=== PATIENT | male | born 1965 | race Caucasian/White ===

== ENCOUNTER 2020-01-19 07:00 | Day surgery (SDC) | payer OTHER, SELFPAY ==
[2020-01-15 10:55] VITALS: BMI 26.4
--- NOTE | 2020-01-17 15:03 | HO.ANESPROP2 ---
Documented by User: Rosy Lala 01/17/20 15:04 HPI - Anesthesia Eval Consult details Narrative: 54yo M for Colonoscopy PMFSH Past Medical History Medical History Hypertension Skin cancer Surgical History Surgical History Hx of cholecystectomy Hx of colonoscopy Social History Social History Smoking Status: Never smoker Advance Directives: Yes Advance Directives Information Provided: Yes Advance Directives on File: No Advance Directives Date on File: 01/19/20 Meds Allergies Allergy/AdvReac Type Severity Reaction Status Date / Time No Known Allergies Allergy Verified 01/15/20 10:52 Home Medications Medication Instructions Recorded Confirmed Type lisinopril 1 tab PO DAILY 01/15/20 01/19/20 History multivitamin 1 cap PO DAILY 01/15/20 01/15/20 History Exam Exam Date and Time: January 17, 2020 1503 Height,Weight and Vital Signs: Height 5 ft 8.5 in Weight 79.832 kg Assessment and Plan Assessment Anesthesia Assessment: Chart Reviewed Documented by User: Greta Bowen 01/19/20 07:56 PMFSH Past Medical History Medical History Hypertension Skin cancer Surgical History Surgical History Hx of cholecystectomy Hx of colonoscopy Social History Social History Smoking Status: Never smoker Advance Directives: Yes Advance Directives Information Provided: Yes Advance Directives on File: No Advance Directives Date on File: 01/19/20 Meds Allergies Allergy/AdvReac Type Severity Reaction Status Date / Time No Known Allergies Allergy Verified 01/15/20 10:52 Home Medications Medication Instructions Recorded Confirmed Type lisinopril 1 tab PO DAILY 11/09/20 11/13/20 History multivitamin 1 cap PO DAILY 01/15/20 01/15/20 History Exam Airway Mallampati Class: I TM Dist: >3cm Neck ROM: Full Loose/Missing/Broken Teeth: No Heart: RRR Lungs: CTA Assessment and Plan Assessment Anesthesia Assessment: Anesthesia Plan Discussed and Chart Reviewed Final Anesthetic Review NPO: Yes ASA Class: II Final Preanesthetic Review: Meds/Allgs Chart Reviewed, Consent Obtained/Reviewed and Anes Risks/Benef Reviewed Patient Risk: Low Procedure Risk: Low Anesthetic Plan Anesthetic Plan: MAC: Disposition: Standard PACU
[2020-01-19 07:10] VITALS: BP 151/80; PULSE 65; RESP 18; TEMP 35.6; O2SAT 100
[2020-01-19] MEDS: Lactated Ringers 1,000 ML 100 ML IVCONT (07:25)
--- NOTE | 2020-01-19 07:58 | MHC.SHP ---
Pre-Procedural Eval Section B Chief Complaint: screening Details of Present Illness: screening Relevant Family History (Specify if Yes): No Relevant Social History: None Present Medications: see Short Stay Collaborative assessment Medical History: No relevant PMH History of Previous Operations: No relevant previous surgery Allergies: Allergies Allergy/AdvReac Type Severity Reaction Status Date / Time No Known Allergies Allergy Verified 01/15/20 10:52 Review of Systems Sugical H&P ROS: Negative: Constitution, Cardiovascular, Respiratory, Neurological, Psychiatric, Hem-Onc, Allergic/Immunologic, Gastrointestinal, Genitourinary, Musculoskeletal, Integumentary, Endocrine and Eyes/Ears/Nose/Throat Exam Surgical H&P Exam: Normal: HEENT, Normal: Heart, Normal: Lungs, Normal: Extremities, Normal: Abdomen, Normal: Skin and Normal: Neurological Plan Diagnosis/Plan: Unchanged Patient has been examined and remains a candidate for the planned procedure
[2020-01-19 08:31] VITALS: BP 115/57; PULSE 69; RESP 16; TEMP 36.6; O2SAT 99
--- NOTE | 2020-01-19 08:32 | PM.OP ---
Brief Operative Note Date of Service: 01/19/20 Pre-op diagnosis: screening Post-op diagnosis: same (colon polyps) Procedure: colonoscopy Surgeon: Stuart Borrero Anesthesia: MAC Estimated blood loss (mL): 5 Pathology: other (polyps 70, 15 cm) Condition: stable Disposition: PACU
[2020-01-19 08:46] VITALS: BP 131/82; PULSE 61; RESP 16; TEMP 36.6; O2SAT 99
--- NOTE | 2020-01-19 09:10 | OP_ITS ---
SURGEON: Stuart Borrero MD INDICATIONS: Colon cancer screening and prior history of adenomatous colon polyps. PREOPERATIVE DIAGNOSIS: POSTOPERATIVE DIAGNOSIS: PROCEDURE PERFORMED: Colonoscopy to the terminal ileum with biopsy. ESTIMATED BLOOD LOSS: COMPLICATIONS: ANESTHESIA: ASSISTANTS: SPECIMENS: MEDICATIONS: Monitored anesthesia care. DESCRIPTION OF PROCEDURE: History and physical performed. The risks and benefits of the procedure were explained to the patient. Informed consent was obtained. The patient was placed in the left lateral decubitus position. A digital rectal exam was performed and was found to be normal. The Olympus pediatric video colonoscope was introduced into the rectum and advanced to the cecum without difficulty. The cecum was identified by transillumination, palpation, and identification of ileocecal valve. Examination was performed. The scope was removed. He tolerated the procedure well and was returned to recovery area in stable condition. FINDINGS: The terminal ileum was normal. The visualized colonic mucosa was normal. There was some stool coating mucosa in the right colon and proximal transverse colon limiting examination for detection of small polyps. This was washed and suctioned as best possible. Two polyps were identified, removed with biopsy forceps. Both measured less than 5 mm, one was located at 70 cm, one was located at 15 cm. No other polyps were identified. Retroflexed examination showed small internal hemorrhoids. IMPRESSION: Colon polyps. RECOMMENDATION: Follow up biopsy results. MD RIKA Jay/ABHIJITL / [id number]
== END 2020-01-19 09:15 | disposition home or self-care (01) ==
PROVIDERS: PCP Internal Medicine; Visit Provider Internal Medicine Gastroenterology
PROC: 0DJD8ZZ Inspection of Lower Intestinal Tract, Via Natural or Artificial Opening Endoscopic (ICD-10-PCS; CPT 45378; principal; 2020-01-19 08:10)
DX: Z12.11 Encounter for screening for malignant neoplasm of colon (principal); Z86.010 Personal history of colon polyps; D12.4 Benign neoplasm of descending colon; D12.7 Benign neoplasm of rectosigmoid junction; K64.8 Other hemorrhoids; I10 Essential (primary) hypertension; Z79.899 Other long term (current) drug therapy; Z85.828 Personal history of other malignant neoplasm of skin
CPT/HCPCS: 45380; 88305

== ENCOUNTER 2020-02-08 07:09 | Outpatient (REF) | payer OTHER, SELFPAY ==
[2020-02-08 11:18] LABS: MANUAL DIFF FLAG NO
[2020-02-08 11:26] LABS: Basophils Absolute Auto 0.1 X10*3/uL (0.0-0.2); Basophils Percent Auto 1.1 % (0-2); Eosinophils Absolute Auto 0.2 X10*3/uL (0.0-0.4); Eosinophils Percent Auto 3.2 % (0-4); Hematocrit 46.6 % (42-52); Hemoglobin 15.7 g/dl (14.0-18.0); Imm Gran Abs Auto 0.04 X10*3/uL (0.00-0.03); Imm Gran Pct Auto 0.7 % (0.0-0.4); Lymphocytes Absolute Auto 1.4 X10*3/uL (1.2-4.9); Lymphocytes Percent Auto 26.5 % (20-40); Mean Corpuscular HGB Conc 33.7 g/dl (31.0-36.0); Mean Corpuscular Volume 94.9 fL (80-98); Mean Platelet Volume 9.6 fL (9.4-12.4); Monocytes Absolute Auto 0.5 X10*3/uL (0.1-1.2); Monocytes Percent Auto 8.4 % (2-11); Neutrophils Absolute Auto 3.2 X10*3/uL (2.0-8.3); Neutrophils Percent Auto 60.1 % (45-73); Platelet Count 245 X10*3/uL (160-400); Red Blood Count 4.91 X10*6/uL (4.60-5.80); Red Cell Distribution Width 11.7 % (11.0-16.0); White Blood Count 5.4 X10*3/uL (4.8-10.8)
[2020-02-08 12:11] LABS: C Reactive Protein 0.09 mg/dL (< or = 0.50)
[2020-02-08 12:22] LABS: Erythrocyte Sedimentation Rate 2 MM/HR (0-15)
[2020-02-10 06:47] LABS: Lyme Abs Screen <0.90 index
== END 2020-02-08 07:10 | disposition home or self-care (01) ==
LOC: HO.HMGCLDS 07:09
PROVIDERS: PCP Internal Medicine; Visit Provider Internal Medicine
DX: T14.8XXA Other injury of unspecified body region, initial encounter (principal)
CPT/HCPCS: 36415; 85025; 85652; 86140; 86618

== ENCOUNTER 2020-06-21 06:07 | Outpatient (REF) | payer OTHER, SELFPAY ==
[2020-06-21 11:18] LABS: MANUAL DIFF FLAG NO
[2020-06-21 11:27] LABS: Basophils Absolute Auto 0.1 X10*3/uL (0.0-0.2); Basophils Percent Auto 1.6 % (0-2); Eosinophils Absolute Auto 0.2 X10*3/uL (0.0-0.4); Eosinophils Percent Auto 3.2 % (0-4); Hematocrit 45.2 % (42-52); Hemoglobin 15.4 g/dl (14.0-18.0); Imm Gran Abs Auto 0.03 X10*3/uL (0.00-0.03); Imm Gran Pct Auto 0.5 % (0.0-0.4); Lymphocytes Absolute Auto 1.7 X10*3/uL (1.2-4.9); Lymphocytes Percent Auto 30.1 % (20-40); Mean Corpuscular HGB Conc 34.1 g/dl (31.0-36.0); Mean Corpuscular Hemoglobin 32.1 pg (27.0-33.0); Mean Corpuscular Volume 94.2 fL (80-98); Mean Platelet Volume 9.8 fL (9.4-12.4); Monocytes Absolute Auto 0.6 X10*3/uL (0.1-1.2); Neutrophils Percent Auto 53.6 % (45-73); Platelet Count 250 X10*3/uL (160-400); Red Cell Distribution Width 11.7 % (11.0-16.0); White Blood Count 5.7 X10*3/uL (4.8-10.8)
[2020-06-21 11:52] LABS: Alanine Aminotransferase 20 U/L (0-40); Albumin Level 4.4 g/dL (3.5-5.0); Alkaline Phosphatase 62 U/L (39-117); Anion Gap 12 (12-20); Aspartate Amino Transferase 22 U/L (5-37); Bilirubin Total 0.4 mg/dL (0.0-1.0); Blood Urea Nitrogen 17 mg/dL (9-16); Calcium 9.4 mg/dL (8.4-10.2); Carbon Dioxide 30 mmol/L (22-29); Chloride 102 mmol/L (96-108); Cholesterol 224 mg/dL; Estimated Glomerular Filt Rate > 60; Glucose Fasting 88 mg/dL (60-99); HDL Cholesterol 74 mg/dL; LDL Cholesterol Calculated 128 mg/dl; Potassium 4.7 mmol/L (3.3-5.1); Sodium 139 mmol/L (135-145); Total Protein 7.1 g/dL (6.5-8.0); Triglycerides 114 mg/dL
[2020-06-21 12:01] LABS: Prostate Specific Antigen 0.43 ng/mL (<0.05-4.0)
== END 2020-06-21 06:08 | disposition home or self-care (01) ==
LOC: HO.HMGCLDS 06:07
PROVIDERS: Visit Provider Internal Medicine
DX: Z00.00 Encounter for general adult medical examination without abnormal findings (principal); I10 Essential (primary) hypertension; E78.00 Pure hypercholesterolemia, unspecified
CPT/HCPCS: 36415; 80053; 80061; 84153; 85025

== ENCOUNTER 2021-08-07 06:04 | Outpatient (REF) | payer OTHER, SELFPAY ==
[2021-08-07 11:19] LABS: MANUAL DIFF FLAG NO
[2021-08-07 11:25] LABS: Basophils Absolute Auto 0.1 X10*3/uL (0.0-0.2); Basophils Percent Auto 1.6 % (0-2); Eosinophils Absolute Auto 0.1 X10*3/uL (0.0-0.4); Eosinophils Percent Auto 2.2 % (0-4); Hematocrit 42.9 % (42.0-52.0); Hemoglobin 14.4 g/dl (14.0-18.0); Imm Gran Abs Auto 0.03 X10*3/uL (0.00-0.03); Imm Gran Pct Auto 0.6 % (0.0-0.4); Lymphocytes Absolute Auto 1.3 X10*3/uL (1.2-4.9); Lymphocytes Percent Auto 25.4 % (20-40); Mean Corpuscular HGB Conc 33.6 g/dl (31.0-36.0); Mean Corpuscular Hemoglobin 31.3 pg (27.0-33.0); Mean Corpuscular Volume 93.3 fL (80.0-98.0); Mean Platelet Volume 10.1 fL (9.4-12.4); Monocytes Absolute Auto 0.6 X10*3/uL (0.1-1.2); Monocytes Percent Auto 11.4 % (2-11); Neutrophils Percent Auto 58.8 % (45-73); Platelet Count 276 X10*3/uL (160-400); Red Cell Distribution Width 11.8 % (11.0-16.0); White Blood Count 5.1 X10*3/uL (4.8-10.8)
[2021-08-07 11:44] LABS: Alanine Aminotransferase 23 U/L (0-40); Albumin Level 4.1 g/dL (3.5-5.0); Alkaline Phosphatase 66 U/L (39-117); Anion Gap 11 (12-20); Aspartate Amino Transferase 24 U/L (5-37); Bilirubin Total 0.4 mg/dL (0.0-1.0); Blood Urea Nitrogen 17 mg/dL (9-16); Calcium 9.4 mg/dL (8.4-10.2); Carbon Dioxide 26 mmol/L (22-29); Chloride 103 mmol/L (96-108); Cholesterol 217 mg/dL; Estimated Glomerular Filt Rate > 60; Glucose Fasting 100 mg/dL (60-99); HDL Cholesterol 54 mg/dL; LDL Cholesterol Calculated 117 mg/dl; Potassium 4.6 mmol/L (3.3-5.1); Sodium 135 mmol/L (135-145); Total Protein 6.9 g/dL (6.5-8.0); Triglycerides 234 mg/dL
[2021-08-07 12:09] LABS: PSA,Total (Free>4and<10) 0.52 ng/mL (0.00-4.00); Thyroid Stimulating Hormone 1.31 uIU/mL (0.32-4.0)
== END 2021-08-07 06:05 | disposition home or self-care (01) ==
LOC: HO.HMGCLDS 06:04
PROVIDERS: PCP Internal Medicine; Visit Provider Internal Medicine
DX: Z00.00 Encounter for general adult medical examination without abnormal findings (principal); Z12.5 Encounter for screening for malignant neoplasm of prostate; E78.00 Pure hypercholesterolemia, unspecified; I10 Essential (primary) hypertension
CPT/HCPCS: 36415; 80053; 80061; 82306; 84153; 84443; 85025

== ENCOUNTER 2022-06-05 06:18 | Outpatient (REF) | payer OTHER, SELFPAY ==
[2022-06-05 11:40] LABS: MANUAL DIFF FLAG NO
[2022-06-05 11:55] LABS: Basophils Absolute Auto 0.1 X10*3/uL (0.0-0.2); Basophils Percent Auto 1.5 % (0-2); Eosinophils Absolute Auto 0.2 X10*3/uL (0.0-0.4); Eosinophils Percent Auto 3.1 % (0-4); Hemoglobin 15.5 g/dl (14.0-18.0); Imm Gran Abs Auto 0.03 X10*3/uL (0.00-0.03); Imm Gran Pct Auto 0.5 % (0.0-0.4); Lymphocytes Absolute Auto 1.3 X10*3/uL (1.2-4.9); Lymphocytes Percent Auto 20.4 % (20-40); Mean Corpuscular HGB Conc 34.4 g/dl (31.0-36.0); Mean Corpuscular Hemoglobin 32.2 pg (27.0-33.0); Mean Corpuscular Volume 93.6 fL (80.0-98.0); Mean Platelet Volume 10.1 fL (9.4-12.4); Monocytes Absolute Auto 0.7 X10*3/uL (0.1-1.2); Monocytes Percent Auto 10.9 % (2-11); Neutrophils Absolute Auto 3.9 x10*3/uL (2.0-8.3); Neutrophils Percent Auto 63.6 % (45-73); Platelet Count 248 X10*3/uL (160-400); Red Blood Count 4.81 X10*6/uL (4.60-5.80); Red Cell Distribution Width 11.6 % (11.0-16.0); White Blood Count 6.1 X10*3/uL (4.8-10.8)
[2022-06-05 12:36] LABS: Alanine Aminotransferase 17 U/L (0-40); Albumin Level 4.3 g/dL (3.5-5.0); Alkaline Phosphatase 60 U/L (39-117); Anion Gap 11 (12-20); Aspartate Amino Transferase 22 U/L (5-37); Bilirubin Total 1.1 mg/dL (0.0-1.0); Blood Urea Nitrogen 18 mg/dL (9-16); Calcium 9.3 mg/dL (8.4-10.2); Carbon Dioxide 29 mmol/L (22-29); Chloride 103 mmol/L (96-108); Cholesterol 212 mg/dL; Estimated Glomerular Filt Rate > 60; Glucose Fasting 96 mg/dL (60-99); HDL Cholesterol 64 mg/dL; LDL Cholesterol Calculated 129 mg/dl; Potassium 4.2 mmol/L (3.3-5.1); Sodium 139 mmol/L (135-145); Total Protein 6.7 g/dL (6.5-8.0); Triglycerides 96 mg/dL
== END 2022-06-05 06:19 | disposition home or self-care (01) ==
LOC: HO.HMGCLDS 06:18
PROVIDERS: PCP Internal Medicine; Visit Provider Internal Medicine
DX: Z00.00 Encounter for general adult medical examination without abnormal findings (principal); E78.00 Pure hypercholesterolemia, unspecified; I10 Essential (primary) hypertension
CPT/HCPCS: 36415; 80053; 80061; 85025

== ENCOUNTER 2023-02-13 09:13 | Outpatient (AMB) | payer OTHER, SELFPAY ==
--- NOTE | 2023-02-13 09:27 | AM.OFFWIN_ITS ---
Intake Vital Signs 02/13/23 09:41 Height 5 ft 8 in Weight 177 lb BMI 26.9 BP 138/70 Blood Pressure Location Rt brachial Position Sitting Pulse 76 Pulse Source Pulse Oximeter Temp 98.2 F Temp Source Oral Pulse Oximetry (%) 96 Oxygen Delivery Method Room Air Intake Visit Reasons: EP, Chest congestion ([phone]) Intake Note: Pt is here today c/o chest congestion x5days Allergies No Known Allergies Allergy (Verified 02/13/23 09:28) Do you need a note to return to daycare/school/sports/work: No HPI HPI Comments History of Present Illness Details 57-year-old male presents for cough felicia estion low-grade temp times 5 days. PFSH Medical History Hypertension Skin cancer Surgical History Hx of cholecystectomy Hx of colonoscopy Social History Advance Directives Date on File: 01/19/20 Review of Systems Resp Reports chest congestion and Reports cough Physical Exam Vital Signs: Last Vital Signs Temp 98.2 F 02/13/23 09:41 Pulse 76 02/13/23 09:41 BP 138/70 02/13/23 09:41 Pulse Ox 96 02/13/23 09:41 Oxygen Delivery Method Room Air 02/13/23 09:41 BMI result Body Mass Index 26.9 Const General: cooperative, no acute distress and alert Orientation/consciousness: patient oriented x3 Limitations: no limitations HEENT Head: Yes normal to inspection Ears: hearing grossly normal bilaterally and external ears normal General nose exam: Normal external nose present Eyes General: appearance normal, both eyes and all related structures Neck Neck: Yes normal visual inspection Chest Chest palpation & inspection: normal inspection of the chest Resp Effort & Inspection: normal respiratory effort, able to speak in complete sentences and no audible wheezes Auscultation: clear to auscultation bilaterally Cardio Rate: regular rate Rhythm: regular rhythm GI Inspection: Yes normal to inspection Palpation (GI): Soft to palpation and nontender Skin General skin exam: no rashes or lesions noted Neuro General: patient oriented x3 Psych Appearance: grossly normal Mental Status: mental status grossly normal Speech and movement: Normal speech and movement present Affect: normal affect Attitude: cooperative Thought process: Normal thought process present Thought content: Normal thought content present Assessment & Plan Assessment & Plan (1) URI (upper respiratory infection): Code(s): J06.9 - Acute upper respiratory infection, unspecified Qualifiers: URI type: unspecified viral URI Qualified Code(s): J06.9 - Acute upper respiratory infection, unspecified Plan: Home COVID test negative. Suspect viral etiology. Suspects URI versus bronchitis. Will treat symptomatically with inhaler Tessalon Perles and course of prednisone Discharge instructions, follow up and treatment are discussed with patient in my usual fashion. Alternatives in treatment are also discussed. The patient will return for worsening symptoms or as needed. Advised that any labs/imaging ordered will be followed up on and contact made if further treatment needed. Counseled that patient's condition may require further evaluation and/or treatment. Symptoms of concern for worsening disorder discussed in detail in my customary manner. Patient does verbalize understanding of the plan, there are no apparent barriers to communication. The patient is given the opportunity to ask questions and have them answered to his/her satisfaction Coding Level of Care Code Est Pt Level 3 (61949) Diagnoses Viral upper respiratory tract infection J06.9 URI type: unspecified viral URI
[2023-02-13 09:41] VITALS: BP 138/70; PULSE 76; TEMP 36.8; O2SAT 96; BMI 26.9
== END 2023-02-13 10:07 | disposition home or self-care (01) ==
PROVIDERS: PCP Internal Medicine; Visit Provider Physician Assistant
DX: J06.9 Acute upper respiratory infection, unspecified (principal)
CPT/HCPCS: 99051; 99213

== ENCOUNTER 2023-06-11 06:05 | Outpatient (REF) | payer OTHER, SELFPAY ==
[2023-06-11 10:25] LABS: MANUAL DIFF FLAG NO
[2023-06-11 10:48] LABS: Basophils Absolute Auto 0.1 X10*3/uL (0.0-0.2); Basophils Percent Auto 1.7 % (0-2); Eosinophils Absolute Auto 0.2 X10*3/uL (0.0-0.4); Eosinophils Percent Auto 3.4 % (0-4); Hematocrit 44.3 % (42.0-52.0); Hemoglobin 15.1 g/dl (14.0-18.0); Imm Gran Abs Auto 0.01 X10*3/uL (0.00-0.03); Imm Gran Pct Auto 0.2 % (0.0-0.4); Lymphocytes Absolute Auto 1.5 X10*3/uL (1.2-4.9); Lymphocytes Percent Auto 31.7 % (20-40); Mean Corpuscular HGB Conc 34.1 g/dl (31.0-36.0); Mean Corpuscular Hemoglobin 32.2 pg (27.0-33.0); Mean Corpuscular Volume 94.5 fL (80.0-98.0); Mean Platelet Volume 9.7 fL (9.4-12.4); Monocytes Absolute Auto 0.5 X10*3/uL (0.1-1.2); Monocytes Percent Auto 9.4 % (2-11); Neutrophils Absolute Auto 2.6 x10*3/uL (2.0-8.3); Neutrophils Percent Auto 53.6 % (45-73); Platelet Count 249 X10*3/uL (160-400); Red Blood Count 4.69 X10*6/uL (4.60-5.80); Red Cell Distribution Width 11.7 % (11.0-16.0); White Blood Count 4.8 X10*3/uL (4.8-10.8)
[2023-06-11 11:15] LABS: Alanine Aminotransferase 20 U/L (0-40); Albumin Level 4.4 g/dL (3.5-5.0); Alkaline Phosphatase 66 U/L (39-117); Anion Gap 12 (12-20); Aspartate Amino Transferase 23 U/L (5-37); Bilirubin Total 0.3 mg/dL (0.0-1.0); Blood Urea Nitrogen 17 mg/dL (9-16); Calcium 9.4 mg/dL (8.4-10.2); Carbon Dioxide 25 mmol/L (22-29); Chloride 106 mmol/L (96-108); Cholesterol 232 mg/dL (<200); Estimated Glomerular Filt Rate > 60; Glucose Fasting 90 mg/dL (60-99); HDL Cholesterol 68 mg/dL (>40); LDL Cholesterol Calculated 122 mg/dL (<100); Potassium 4.4 mmol/L (3.3-5.1); Sodium 139 mmol/L (135-145); Total Protein 7.2 g/dL (6.5-8.0); Triglycerides 211 mg/dL (<150)
[2023-06-11 11:27] LABS: PSA,Total (Free>4and<10) 0.57 ng/mL (0.00-4.00)
[2023-06-11 11:33] LABS: Thyroid Stimulating Hormone 1.75 uIU/mL (0.32-4.0); Vitamin D 25-OH Total 44.7 ng/mL (>30)
== END 2023-06-11 06:06 | disposition home or self-care (01) ==
LOC: HO.HMGCLDS 06:05
PROVIDERS: PCP Internal Medicine; Visit Provider Internal Medicine
DX: Z00.00 Encounter for general adult medical examination without abnormal findings (principal); Z12.5 Encounter for screening for malignant neoplasm of prostate; I10 Essential (primary) hypertension; E78.00 Pure hypercholesterolemia, unspecified
CPT/HCPCS: 36415; 80053; 80061; 82306; 84153; 84443; 85025

== ENCOUNTER 2024-05-30 06:28 | Outpatient (REF) | payer OTHER, SELFPAY ==
--- OUTSIDE RECORDS SUMMARY | 2024-05-30 06:32 | XMS_ITS | Patient Health Record ---
Author Organization [facility] Address [address] [place] [address] Care Team Providers Care Plastics Engineering Teacher Name Role Phone CRISTHIAN, ELMIRA Primary Care Provider Stuart Hinds Jr Unavailable Allergies No Known Allergies Reason For Referral No Information Medications Medication SIG (Take, Route, Frequency, Duration) Notes Start Date End Date Status Multivitamin Adult - as directed Orally Active Lisinopril 5 MG Oral for 30 Ac tive Acosdk-Rvulb-QVO-Double Str 500-400-167 MG 3 tablets Orally Once a day Active Centrum Adult 50+ MultiGummies - as directed Orally Active Naproxen 250 MG 1 tablet with food o r milk as needed Orally every 12 hrs Active Immunizations Vaccine Route Administration Date Status Comme nts Influenza Unknown 11/06/2018 Administered Influenza Unknown 12/21/2023 Administered Problems Problem Type SNOMED Code ICD Code Onset Dates Problem Status W/U Status Risk Notes Problem 882445581 Colon cancer screening (Z12.11) Active confirmed Problem 928321100 Abdominal bloati ng (R14.0) Active confirmed Problem 838073399 Personal history of colonic polyps (Z86.010) Active confirmed Problem 271403504 Encounter for other preprocedural examination (Z01.818) Active confirmed Problem 623478348 Generalized abdominal pain (R10.84) Active confirmed Problem 378189953 Abdominal fullne ss (R19.8) Active confirmed Vital Signs Temperature 97.5 degrees Fahrenheit 05/24/2024 Blood pressure diastolic 01 mm Hg 05/24/2024 Height 68.5 in 05/24/2024 Blood pressure systolic 001 mm Hg 05/24/2024 Weight 190.2 lbs 05/24/2024 BMI 28.5 kg/m2 05/24/2024 Encounters Encounter Location Date Provider Diagnosis [facility] [address] [place] [address] 05/24/2024 Stuart Borrero Jr Generalized abdominal pain R10.84 ; Abdominal bloating R14.0 and Abdominal fullness R19.8 [facility] [address] [place] [address] 05/22/2024 Stuart Borrero Jr Assessments Encounter Date Diagnosis (ICD Code) Assessment Notes Treatment Notes Treatment Clinical Notes Section Notes 05/24/2024 Abdominal bloating (ICD-10 - R14.0) We discussed his symptoms today. We discussed the treatment of abdominal bloating and fullness as well as generalized abdominal pain. We recommend that he use simethicone 125 mg 4 times daily with meals. He will have laboratory testing and CT scanning of the abdomen pelvis for further evaluation. We discussed this today.Follow-up will be pending these results. 05/24/2024 Generalized abdominal pain (ICD-10 - R10.84) We discussed his symptoms today. We discussed the treatment of abdominal bloating and fullness as well as generalized abdominal pain. We recommend that he use simethicone 125 mg 4 times daily with meals. He will have laboratory testing and CT scanning of the abdomen pelvis for further evaluation. We discussed this today.Follow-up will be pending these results. 05/24/2024 Abdominal fullness (ICD-10 - R19.8) We discussed his symptoms today. We discussed the treatment of abdominal bloating and fullness as well as generalized abdominal pain. We recommend that he use simethicone 125 mg 4 times daily with meals. He will have laboratory testing and CT scanning of the abdomen pelvis for further evaluation. We discussed this today.Follow-up will be pending these results. Plan Of Treatment Pending Test Test Name Order Date BUN 05/24/2024 CREATININE 05/24/2024 LIVER PROFILE 05/24/2024 LIPASE 05/24/2024 CBC w/o DIFF 05/24/2024 CT ABD & PELVIS WITH CONTRAST 05/24/2024 TSH REFLEX FREE T4 05/24/2024 Future Test Test Name Order Date COLONOSCOPY 10/18/2014 COLONOSCOPY 11/16/2019 Insurance Providers Payer Name Payer Address Payer Phone Subscriber Number Group Number Insured Name Patient Relationship to Insured Coverage Start Date Coverage End Date [facility] [address] [place] [phone] [id number] JANNY HARRELL Self - patient is the insured Medical (General) History Medical History History ICD Code skin cancer hypertension meniscal tear Colonoscopy 01/19/2020, tubular adenoma and SSP, 5-year follow-up Surgical History Surgery Date(Month/Year) meniscus repair on left cholecystectomy
--- OUTSIDE RECORDS SUMMARY | 2024-05-30 06:32 | XMS_ITS ---
Author Organization [facility] Address [address] [place] [id number] Care Team Providers Care Service Provider Name Role Phone ELMIRA MORROW Primary Care Provider Stuart Hinds Jr [phone] REASON FOR VISIT abdomnal distension Encounters Encounter Location Date Provider Diagnosis [facility] [address] [facility] [address] [place] [phone] 05/22/2024 Stuart Borrero Jr Plan Of Treatment No Information Progress Notes * FANY HARRELLOB: 5 (59 yo M)Acc No.[id number]:05/22/2024 Patient:?JANNY HARRELL :1965???Age:59 Y???Sex:Male [address] [place], [address] * true * Date:? Generated for Printi leslie/Fatessag/eTransmitting on:?05/30/2024 06:32 AM EDT
--- OUTSIDE RECORDS SUMMARY | 2024-05-30 06:33 | XMS_ITS ---
Author Organization [facility] Address [address] [place] [address] Care Team Providers Care Treasury Director Name Role Phone ELMIRA MORROW Primary Care Provider Stuart Hinds Jr Allergies No Known Allergies REASON FOR VISIT Patient presents today for abdominal distension Medications Medication SIG (Take, Route, Frequency, Duration) Notes Start Date End Date Status Multivitamin Adult - as directed Orally Active Lisinopril 5 MG Oral for 30 Ac tive Qucvev-Jcsud-CEE-Double Str 500-400-167 MG 3 tablets Orally Once a day Active Centrum Adult 50+ MultiGummies - as directed Orally Active Naproxen 250 MG 1 tablet with food o r milk as needed Orally every 12 hrs Active Problems Problem Type SNOMED Code ICD Code Onset Dates Problem Status W/U Status Risk Notes Problem 314498451 Generalized abdominal pain (R10.84) Active confirmed Problem 283930795 Abdominal bloating (R14.0) Active confirmed Problem 502587217 Abdominal fullness (R19.8) Active confirmed Vital Signs Temperature 97.5 degrees Fahrenheit 05/25/19 25 Blood pressure systolic 001 mm Hg 05/25/19 25 Blood pressure diastolic 01 mm Hg 025 Height 68.5 in 05/24/2024 Weight 190.2 lbs 05/24/2024 BMI 28.5 kg/m2 05/24/2024 Encounters Encounter Location Date Provider Diagnosis [facility] [address] [place] [address] 05/24/2024 Stuart Borrero Jr Generalized abdominal pain R10.84 ; Abdominal bloating R14.0 and Abdominal fullness R19.8 Assessments Encounter Date Diagnosis (ICD Code) Assessment Notes Treatment Notes Treatment Clinical Notes Section Notes 05/24/2024 Generalized abdominal pain (ICD-10 - R10.84) [...] will be pending these results. 05/24/2024 Abdominal bloating (ICD-10 - R14.0) We [...] CONTRAST 05/24/2024 TSH REFLEX FREE T4 05/24/2024 Next Appt Details Follow Up: 1 Year, Reason: Progress Notes * HARRELLKEIRY MEDINASTEVEOB: 5 (59 yo M)Acc No.[id number]:05/24/2024 Progress Notes Patient:?JANNY HARRELL Provider:?Stuart Borrero MD :1965???Age:59 Y???Sex:Male Cristhian e:05/24/2024 Address: [address], [place], [place] Pcp:ELMIRA MORROW Subjective: * Chief Complaints: * ???1. Patient presents today for abdominal distension. * HPI: ???New symptom(s):? Sonia is a pleasant 59-year-old man seen today in consultation. He has a history of colon polyps and last underwent colonoscopy in January 2020 with removal of a sessile serrated polyp and a tubular adenoma. 5-year follow-up is due in January 2025. We reviewed this today. Today he complains of symptoms which have been present over the past 3 months. He has a constant feeling of fullness and abdominal bloating. He reports bowel movements are regular without blood or diarrhea. He does occasionally have constipation for which she takes OTC MiraLAX. He has had no black stools. He has not changed his diet or started new medications. Plain films of the abdomen were done and are reviewed. These show a nonspecific bowel gas pattern with no other obvious pathology. We reviewed this today. * ROS:?General/Constitutional:?Change in appetite?denies.?Fatigue?denies.?ENT:?Patient denies?difficulty swallowing.?Respiratory:?Patient denies?shortness of breath.?Cardiovascular:?Patient denies?chest pain.?Gastrointestinal:?Comments?See HPI for details.?Genitourinary:?Difficulty urinating?denies.?Incontinence?denies.?Musculoskeletal:?Patient denies?muscle aches.?Skin:?Patient denies?pruritis.?Neurologic:?Patient denies?low back pain.?Psychiatric:?Patient denies?mental or physical abuse.? * Medical History:?Skin cancer , Hypertension, Meniscal tear, Colonoscopy 01/19/2020, tubular adenoma and SSP, 5-year follow-up. * Surgical History:?cholecyste ctomy , meniscus repair on left . * Family History:?Father: dece ased, diagnosed with HTN (hypertension).?Mother: , diagnosed with HTN (hypertension).? No family history of liver cancer or colon cancer. * Social History:?Tobacco Use:?Tobacco Use/Smoking?Are you a: nonsmoker.?Drugs/Alcohol:?Alcohol Screen?Points: 4, Interpretation: Positive.?Miscellaneous:?Marital status: . Occupation: radiologist tech. * Medications:?Taking Naproxen 250 MG Tablet 1 tablet with food or milk as needed Orally every 12 hrs , Taking Centrum Adult 50+ MultiGummies - Tablet Chewable as directed Orally , Taking Dmnfye-Ecbyy-YAA-Double Str 500-400-167 MG Tablet 3 tablets Orally Once a day , Taking Lisinopril 5 MG Tablet Oral , Taking Multivitamin Adult - Tablet as directed Orally , Discontinued MiraLax (colon prep) 8.3 ounce ((238) grams mixed with Gatorade or Crystal Light orally begin at 5:00 p.m. the day before the procedure , Medication List reviewed and reconciled with the patient * Allergies:?N.K.D.A. Objective: * Vitals:?Wt:190.2lbs, Ht: 68. 5 in, BMI:28.5Index, BP:001/01mm Hg, Temp:97.5, Wt- k.27. * Examination: ???General Examination: ?GENERAL APPEARANCE:?in no acute distress.?HEAD:?normocephalic.?EYES:?sclera non-icteric.?ORAL CAVITY:?mucosa moist.?NECK/THYROID:?no lymphadenopathy.?SKIN:?anicteric.?HEART:?S1, S2 normal, no murmurs.?LUNGS:?clear to auscultation bilaterally.?CHEST:?normal shape and expansion.?ABDOMEN:?soft, nontender, nondistended, bowel sounds present, no organomegaly .?EXTREMITIES:?no clubbing, cyanosis, or edema.?PSYCH:?cognitive function intact.? Assessment: * Assessment: 1.?Generalized abdominal daren n - R10.84 (Primary)???2.?Abdominal bloating - R14.0???3.?Abdominal fullness - R19.8??? We discussed his symptoms to day. We discussed the treatment of abdominal bloating and fullness as well as generalized abdominal pain. We recommend that he use simethicone 125 mg 4 times daily with meals. He will have laboratory testing and CT scanning of the abdomen pelvis for further evaluation. We discussed this today.Follow-up will be pending these results. Plan: * Treatment: * * Procedure Codes:?3017F COLOR ECTAL CA SCREEN DOC REV, G9903 Pt scrn tbco id as non user, G9744 PATIENT NOT ELIG D/T ACTIVE DX HTN * Preventive Medicine:? ??Counseling:?Care goal follow-up plan:?Above Normal BMI Follow-up?Dietary management education, guidance, and counseling,?BMI management provided?Yes.? * Follow Up:?1 Year * * Sign off status: Completed true * Provider:?Stuart Borrero MD Date:?0 05/24/2024 Generated for Chacho nelson/Kranthi/eTransmitting on:?05/30/2024 06:32 AM EDT History and Physical Notes * HPI (History of Present Illness) Category Sub-Category Detail Notes Category Not es New symptom(s) Sonia is a pleasant 59-year-old man seen today in consultation. He has a history of colon polyps and last underwent colonoscopy in January 2020 with removal of a sessile serrated polyp and a tubular adenoma. 5-year follow-up is due in January 2025. We reviewed this today. Today he complains of symptoms which have been present over the past 3 months. He has a constant feeling of fullness and abdominal bloating. He reports bowel movements are regular without blood or diarrhea. He does occasionally have constipation for which she takes OTC MiraLAX. He has had no black stools. He has not changed his diet or started new medications. Plain films of the abdomen were done and are reviewed. These show a nonspecific bowel gas pattern with no other obvious pathology. We reviewed this today. Examination Category Sub-Category Detail Notes Category Not es General Examination GENERAL APPEARANCE: in no acute di stress HEAD: normocephalic EYES: sclera non-icteric NECK/THYROID: no lymphadenopathy HEART: S1, S2 normal, no mu rmurs CHEST: normal shape and exp ansion LUNGS: clear to auscultatio n bilaterally ABDOMEN: soft, nontender, non distended, bowel sounds present, no organomegaly SKIN: anicteric EXTREMITIES: no clubbing, cyanosi s, or edema PSYCH: cognitive function i ntact ORAL CAVITY: mucosa moist
[2024-05-30 10:42] LABS: MANUAL DIFF FLAG NO
[2024-05-30 10:50] LABS: Basophils Absolute Auto 0.1 X10*3/uL (0.0-0.2); Basophils Percent Auto 2.4 % (0-2); Eosinophils Absolute Auto 0.1 X10*3/uL (0.0-0.4); Eosinophils Percent Auto 2.9 % (0-4); Hematocrit 42.8 % (42.0-52.0); Hemoglobin 15.1 g/dl (14.0-18.0); Imm Gran Abs Auto 0.04 X10*3/uL (0.00-0.03); Imm Gran Pct Auto 0.9 % (0.0-0.4); Lymphocytes Absolute Auto 1.3 X10*3/uL (1.2-4.9); Lymphocytes Percent Auto 28.5 % (20-40); Mean Corpuscular HGB Conc 35.3 g/dl (31.0-36.0); Mean Corpuscular Hemoglobin 33.2 pg (27.0-33.0); Mean Corpuscular Volume 94.1 fL (80.0-98.0); Mean Platelet Volume 9.7 fL (9.4-12.4); Monocytes Absolute Auto 0.5 X10*3/uL (0.1-1.2); Neutrophils Absolute Auto 2.5 x10*3/uL (2.0-8.3); Neutrophils Percent Auto 54.3 % (45-73); Platelet Count 223 X10*3/uL (160-400); Red Blood Count 4.55 X10*6/uL (4.60-5.80); Red Cell Distribution Width 12.1 % (11.0-16.0); White Blood Count 4.6 X10*3/uL (4.8-10.8)
[2024-05-30 11:48] LABS: Alanine Aminotransferase 24 U/L (0-40); Albumin Level 4.4 g/dL (3.5-5.0); Alkaline Phosphatase 64 U/L (39-117); Aspartate Amino Transferase 29 U/L (5-37); Bilirubin Direct 0.3 mg/dL (0.0-0.5); Bilirubin Total 0.5 mg/dL (0.0-1.0); Blood Urea Nitrogen 14 mg/dL (9-16); Estimated Glomerular Filt Rate > 60; Lipase 12 U/L (8-78); Total Protein 7.3 g/dL (6.5-8.0)
[2024-05-30 12:09] LABS: TSH reflex Free T4 1.26 uIU/mL (0.32-4.0)
== END 2024-05-30 06:29 | disposition home or self-care (01) ==
LOC: HO.HMGCLDS 06:28
PROVIDERS: PCP Internal Medicine; Visit Provider Internal Medicine Gastroenterology
DX: R10.84 Generalized abdominal pain (principal)
CPT/HCPCS: 36415; 80076; 82565; 83690; 84443; 84520; 85025

== ENCOUNTER 2024-06-14 11:48 | Outpatient (REF) | payer OTHER, SELFPAY ==
--- NOTE | ~2024-06-14 | CT_ITS ---
CLINICAL HISTORY: LLQ PAIN CT abdomen and pelvis with contrast Comparison: None Findings: The lung bases are clear. The gallbladder is absent. The liver, spleen, adrenal glands and pancreas are unremarkable. Kidneys, ureters and bladder are normal. The prostate gland is within normal limits. No bowel obstruction or free air. Minimal diverticulosis. No evidence of diverticulitis. Mild scattered atherosclerotic disease. No free fluid, abscess or adenopathy. No suspicious bone lesion. Impression: No acute process within the abdomen or pelvis by CT. This document has been electronically signed by: Colt Rae MD on 06/16/2024 09:11:42
--- OUTSIDE RECORDS SUMMARY | 2024-06-14 13:58 | XMS_ITS ---
Author Organization [facility] Address [address] [place] [address] Care Team Providers Care Reconciliation Manager Name Role Phone ELMIRA MORROW Primary Care Provider Stuart Hinds Jr Allergies No Known Allergies REASON FOR VISIT Patient presents today for abdominal distension Medications Medication SIG (Take, Route, Frequency, Duration) Notes Start Date End Date Status Multivitamin Adult - as directed Orally Active Lisinopril 5 MG Oral for 30 Ac tive Inpwky-Pgnvo-KBW-Double Str 500-400-167 MG 3 tablets Orally Once a day Active Centrum Adult 50+ MultiGummies - as directed Orally Active Naproxen 250 MG 1 tablet with food o r milk as needed Orally every 12 hrs Active Problems Problem Type SNOMED Code ICD Code Onset Dates Problem Status W/U Status Risk Notes Problem 867096578 Generalized abdominal pain (R10.84) Active confirmed Problem 947072688 Abdominal bloating (R14.0) Active confirmed Problem 383291153 Abdominal fullness (R19.8) Active confirmed Vital Signs Temperature 97.5 degrees Fahrenheit 05/25/19 25 Blood pressure systolic 001 mm Hg 05/25/19 25 Blood pressure diastolic 01 mm Hg 025 Height 68.5 in 05/24/2024 Weight 190.2 lbs 05/24/2024 BMI 28.5 kg/m2 05/24/2024 Encounters Encounter Location Date Provider Diagnosis [facility] [address] [place] [address] 05/24/2024 Stuart Borrero Jr Generalized abdominal pain [...] * HARRELLKEIRY MEDINASTEVEOB: 5 (59 yo M)Acc No.[id number]:05/24/2024 Progress Notes Patient:?JANNY HARRELL Provider:?Stuart Borrero MD :1965???Age:59 Y???Sex:Male Cristhian e:05/24/2024 Address: [address], [place], [place] Pcp:ELMIRA MORROW Subjective: * Chief Complaints: * [...] Tablet Chewable as directed Orally , Taking Vilhir-Vpbay-UQL-Double Str 500-400-167 MG Tablet 3 tablets Orally [...] MD Date:?0 05/24/2024 Generated for Chacho nelson/Kranthi/eTransmitting on:?06/14/2024 01:57 PM EDT History and Physical Notes * HPI [...]
--- OUTSIDE RECORDS SUMMARY | 2024-06-14 13:58 | XMS_ITS ---
Author Organization [facility] Address [address] [place] [address] Care Team Providers Care Information Resources Director Name Role Phone ELMIRA MORROW Primary Care Provider Stuart Hinds Jr REASON FOR VISIT abdomnal distension Encounters Encounter Location Date Provider Diagnosis [facility] [address] [facility] [address] [place] [phone] 05/22/2024 Stuart Borrero Jr Plan Of Treatment No Information Progress Notes * FANY HARRELLOB: 5 (59 yo M)Acc No.[id number]:05/22/2024 Patient:?JANNY HARRELL :1965???Age:59 Y???Sex:Male [address] [place], [address] * true * Date:? Generated for Marbellai leslie/Kranthi/eTransmitting on:?06/14/2024 01:57 PM EDT
--- OUTSIDE RECORDS SUMMARY | 2024-06-14 13:58 | XMS_ITS | Patient Health Record ---
Author Organization [facility] Address [address] [place] [address] Care Team Providers Care Health Science Specialist Name Role Phone ELMIRA MORROW Primary Care Provider Stuart Hinds Jr Unavailable [phone] Allergies No Known Allergies Results Component Value Reference Range Notes Complete Blood Count Auto Di ff Reviewed date:06/01/2024 11:42:54 AM Interpretation: Performing Lab:[facility], [address] [place] [phone] Notes/Report: White Blood Count 4.6 4.8-10.8 X10*3/uL Red Blood Count 4.55 4.60-5.80 X10*6/uL Hemoglobin 15.1 14.0-18.0 g/dl Hematocrit 42.8 42.0-52.0 % Mean Corpuscular Volume 94.1 80.0-98.0 fL Mean Corpuscular Hemoglobin 33.2 27.0-33.0 pg Mean Corpuscular HGB Conc 35.3 31.0-36.0 g/dl Red Cell Distribution Width 12.1 11.0-16.0 % Platelet Count 223 160-400 X10*3/uL Mean Platelet Volume 9.7 9.4-12.4 fL Neutrophils Percent Auto 54.3 45-73 % Imm Gran Pct Auto 0.9 0.0-0.4 % Lymphocytes Percent Auto 28.5 20-40 % Monocytes Percent Auto 11.0 2-11 % Eosinophils Percent Auto 2.9 0-4 % Basophils Percent Auto 2.4 0-2 % NRBC Pct Auto 0.0 0.0-0.2 /100WBC Neutrophils Absolute Auto 2.5 2.0-8.3 x10*3/u L Imm Gran Abs Auto 0.04 0.00-0.03 X10*3/uL Lymphocytes Absolute Auto 1.3 1.2-4.9 X10*3/u L Monocytes Absolute Auto 0.5 0.1-1.2 X10*3/uL Eosinophils Absolute Auto 0.1 0.0-0.4 X10*3/u L Basophils Absolute Auto 0.1 0.0-0.2 X10*3/uL NRBC Abs Auto 0.000 0.0-0.012 X10*3/uL Liver Panel Reviewed date:06/01/2024 11:42:39 AM Interpretation: Performing Lab:[address] [phone] Notes/Report: Bilirubin Total 0.5 0.0-1.0 mg/dL Bilirubin Direct 0.3 0.0-0.5 mg/dL Aspartate Amino Transferase 29 5-37 U/L Alanine Aminotransferase 24 0-40 U/L Total Protein 7.3 6.5-8.0 g/dL Albumin Level 4.4 3.5-5.0 g/dL Alkaline Phosphatase 64 39-117 U/L Blood Urea Nitrogen Reviewed date:06/01/2024 11:42:47 AM Interpretation: Performing Lab:[address] [phone] Notes/Report: Blood Urea Nitrogen 14 9-16 mg/dL Creatinine Reviewed date:06/01/2024 11:42:24 AM Interpretation: Performing Lab:[address] [phone] Notes/Report: Creatinine 0.87 0.5-1.4 mg/dL Estimated Glomerular Filt Rate > 60 Chronic Kidney Disease: Estimated GFR < 60 mL/min/1.73m2 Severe Kidney Disease: Estimated GFR < 15 mL/min/1.73m2 Lipase Reviewed date:06/01/2024 11:42:20 AM Interpretation: Performing Lab:[address] [phone] Notes/Report: Lipase 12 8-78 U/L TSH reflex Free T4 Reviewed date:06/01/2024 11:41:50 AM Interpretation: Performing Lab:[facility], [address], [place] [address] Notes/Report: TSH reflex Free T4 1.26 0.32-4.0 uIU/mL Reason For Referral No Information Medications Medication SIG (Take, Route, Frequency, Duration) Notes Start Date End Date Status Multivitamin Adult - as directed Orally Active Lisinopril 5 MG Oral for 30 Ac tive Rvsvqw-Nccsi-FSR-Double Str 500-400-167 MG 3 tablets Orally Once [...] Problem Status W/U Status Risk Notes Problem 693816173 Colon cancer screening (Z12.11) Active confirmed Problem 155604997 Abdominal bloati ng (R14.0) Active confirmed Problem 707173084 Personal history of colonic polyps (Z86.010) Active confirmed Problem 196159553 Encounter for other preprocedural examination (Z01.818) Active confirmed Problem 301111981 Generalized abdominal pain (R10.84) Active confirmed Problem 194566578 Abdominal fullne ss (R19.8) Active confirmed Vital Signs Temperature 97.5 degrees Fahrenheit 05/24/2024 Blood pressure diastolic 01 mm Hg 05/24/2024 Height 68.5 in 05/24/2024 Blood pressure systolic 001 mm Hg 05/24/2024 Weight 190.2 lbs 05/24/2024 BMI 28.5 kg/m2 05/24/2024 Encounters Encounter Location Date Provider Diagnosis [facility] [address] [place] [phone] 05/24/2024 Stuart Borrero Jr Generalized abdominal pain R10.84 ; Abdominal bloating R14.0 and Abdominal fullness R19.8 [facility] [address] [place] [address] 05/22/2024 Stuart Borrero Jr [facility] [address] [place] [address] 06/01/2024 Stuart Borrero Jr Assessments Encounter Date Diagnosis [...] Insured Coverage Start Date Coverage End Date [facility] [address] [facility] [place] [phone] [id number] JANNY HARRELL Self - patient is the insured Medical (General) History Medical History History ICD Code skin cancer hypertension meniscal tear Colonoscopy 01/19/2020, tubular adenoma and SSP, 5-year follow-up Surgical History Surgery Date(Month/Year) meniscus repair on left cholecystectomy
--- OUTSIDE RECORDS SUMMARY | 2024-06-14 13:58 | XMS_ITS ---
Author Organization [facility] Address [address] [facility] [address] [place] [phone] Care Team Providers Care Project Manager/Team Coach Name Role Phone ELMIRA MORROW Primary Care Provider Stuart Hinds Jr [phone] REASON FOR VISIT Labs Encounters Encounter Location Date Provider Diagnosis [facility] [address] [facility] [address] [place] [address] 06/01/2024 Stuart Borrero Jr Plan Of Treatment No Information Progress Notes * FANY HARRELLOB: 5 (59 yo M)Acc No.[id number]:06/01/2024 Patient:?JANNY HARRELL :1965???Age:59 Y???Sex:Male Address:[address] [place], [address] * true * Date:? Generated for Printi leslie/Fatessag/eTransmitting on:?06/14/2024 01:57 PM EDT
[2024-06-14] MEDS: iohexoL 350 MG/ML 100 ML INFUS..BTL IV (14:25)
[2024-06-14] MEDS: Barium Sulfate Oral (Vanilla) 450 ML ORAL.SUSP PO ×2 (14:25→14:26)
== END 2024-06-14 11:49 | disposition home or self-care (01) ==
LOC: HO.CT 11:48
PROVIDERS: PCP Internal Medicine; Visit Provider Internal Medicine Gastroenterology
DX: R10.84 Generalized abdominal pain (principal)
CPT/HCPCS: 74177; Q9967

== ENCOUNTER → 2024-06-14 13:58 | Outpatient (BNV) | payer OTHER, SELFPAY | PROVIDERS: PCP Internal Medicine; Visit Provider Radiology Vascular & Interventional Radiology | DX: R10.32 Left lower quadrant pain (principal) | CPT/HCPCS: 74177 ==

== ENCOUNTER → 2024-07-18 13:51 | Outpatient (BNVA) | payer OTHER, SELFPAY | PROVIDERS: PCP Internal Medicine; Visit Provider Internal Medicine | DX: Z13.89 Encounter for screening for other disorder (principal) ==

== ENCOUNTER 2024-07-26 06:04 | Outpatient (REF) | payer OTHER, SELFPAY ==
[2024-07-26 10:12] LABS: Hemoglobin 15.5 g/dl (14.0-18.0); Mean Corpuscular HGB Conc 35.2 g/dl (31.0-36.0); Mean Corpuscular Hemoglobin 32.8 pg (27.0-33.0); Mean Corpuscular Volume 93.2 fL (80.0-98.0); Mean Platelet Volume 9.8 fL (9.4-12.4); Platelet Count 232 X10*3/uL (160-400); Red Blood Count 4.72 X10*6/uL (4.60-5.80); Red Cell Distribution Width 11.6 % (11.0-16.0); White Blood Count 5.8 X10*3/uL (4.8-10.8)
[2024-07-26 11:59] LABS: Alanine Aminotransferase 27 U/L (0-40); Albumin Level 4.2 g/dL (3.5-5.0); Alkaline Phosphatase 57 U/L (39-117); Anion Gap 11 (12-20); Aspartate Amino Transferase 30 U/L (5-37); Bilirubin Direct 0.3 mg/dL (0.0-0.5); Bilirubin Total 0.9 mg/dL (0.0-1.0); Blood Urea Nitrogen 16 mg/dL (9-16); Carbon Dioxide 26 mmol/L (22-29); Chloride 105 mmol/L (96-108); Cholesterol 232 mg/dL (<200); Estimated Glomerular Filt Rate > 60; Glucose Random 97 mg/dL (60-115); HDL Cholesterol 65 mg/dL (>40); LDL Cholesterol Calculated 132 mg/dL (<100); Potassium 4.3 mmol/L (3.3-5.1); Sodium 138 mmol/L (135-145); Total Protein 6.9 g/dL (6.5-8.0); Triglycerides 175 mg/dL (<150)
[2024-07-26 12:21] LABS: Thyroid Stimulating Hormone 1.88 uIU/mL (0.32-4.0)
[2024-08-04 16:17] LABS: Testosterone, Free 79.8 pg/mL (35.0-155.0); Testosterone, Total 441 ng/dL (250-1100)
== END 2024-07-26 06:05 | disposition home or self-care (01) ==
LOC: HO.HMGCLDS 06:04
PROVIDERS: PCP Internal Medicine; Visit Provider Internal Medicine
DX: I10 Essential (primary) hypertension (principal)
CPT/HCPCS: 36415; 80048; 80061; 80076; 84402; 84403; 84443; 85027

== ENCOUNTER 2024-08-15 13:00 | Outpatient (AMB) | payer OTHER, SELFPAY ==
[2024-08-15 13:01] VITALS: BP 146/79; PULSE 70; RESP 14; TEMP 36.2; O2SAT 98; BMI 28.7
--- NOTE | 2024-08-15 13:01 | A.OFFPC_ITS ---
Vital Signs 08/15/24 13:01 Height 5 ft 8 in Weight 189 lb BMI 28.7 BP 146/79 H Respiration 14 Pulse 70 Pulse Source Pulse Oximeter Temp 97.2 F Temp Source Temporal Artery Scan Pulse Oximetry (%) 98 Oxygen Delivery Method Room Air Intake Visit Reasons: follow up - see comments Teacher Aide Clerical Required: No Accompanied by: Self / Same As Patient Allergies No Known Allergies Allergy (Verified 08/15/24 13:02) Tobacco use date assessed: 07/18/24 Dental Screening Dental Screen Date: 07/18/24 [facility] Medical History Hypertension Skin cancer Surgical History Hx of colonoscopy (~01/19/20) Hx of cholecystectomy Family History Father Lung cancer Mother BP (high blood pressure) Social History Housing: House Alcohol intake: current Alcohol intake frequency: a few times a week Patient Tobacco Use Status: Never used Tobacco Advance Directives Date on File: 01/19/20 service: No Current occupational status: employed Cognitive needs: No Hearing needs: No Vision needs: Yes (reading glasses) Questionnaire PHQ-9 Over the last 2 weeks, how often have you been bothered by any of the following problems? 1. Little interest or pleasure in doing things: not at all 2. Feeling down, depressed, or hopeless: not at all 3. Trouble falling or staying asleep, or sleeping too much: not at all 4. Feeling tired or having little energy: not at all 5. Poor appetite or overeating: not at all 6. Feeling bad about yourself - or that you are a failure or have let yourself or your family down: not at all 7. Trouble concentrating on things, such as reading the newspaper or watching television: not at all 8. Moving or speaking so slowly that other people could have noticed. Or the opposite - being so fidgety or restless that you have been moving around a lot more than usual: not at all 9. Thoughts that you would be better off or of hurting yourself in some way: not at all Total score: 0 Source: Developed by Drs. Edmar Red, Yumiko Sanchez, Ramakrishna Rivas and colleagues, with an educational jenae from [employer]. Thrive Questionnaire Date Thrive assessed: 07/18/24 I am a: Patient What is your living situation today?: I have a steady place to live Within the past 12 months, did the food you bought not last and you didn't have the money to get more?: Never true Within the past 12 months, did you worry whether your food would run out before you got money to buy more?: Never true Do you have trouble paying for medicines?: No Do you have trouble getting transportation to medical appointments?: No Do you have trouble paying your heating and electricity bill?: No Do you have trouble taking care of your child, family member or friend?: No Do you have trouble with day-to-day activities such as bathing, preparing meals, shopping, managing finances, etc.?: No Are you currently unemployed and looking for a job?: No Are you interested in more education?: No Please select the resources that you would like help with: None THRIVE Score: 0 AUDIT C Alcohol Use Questionnaire (AUDIT-C) 1. How often do you have a drink containing alcohol?: 2-3 times a week 2. How many drinks containing alcohol do you have on a typical day when you are drinking?: 1 or 2 3. How often do you have six or more drinks on one occasion?: Never Total Score: 3 ARMANDO-7 AMB Questionnaire ARMANDO-7 Date ARMANDO - 7 assessed: 07/18/24 Feeling nervous, anxious, or on edge: 0 = Not at all Not being able to stop or control worryin = Not at all Worrying too much about different things: 0 = Not at all Trouble relaxin = Not at all Being so restless that it is hard to sit still: 0 = Not at all Becoming easily annoyed or irritable: 0 = Not at all Feeling afraid as if something awful might happen: 0 = Not at all Total ARMANDO-7 score (0-4 normal; 5-9 mild; 10-14 moderate; 15-21 severe): 0 Source: Developed by Yumiko Keys Kurt Kroenke and colleagues, with an educational jenae from [employer]. Physical exam (Primary Care) Vital Signs: Last Vital Signs Temp 97.2 F 08/15/24 13:01 Pulse 70 08/15/24 13:01 Resp 14 08/15/24 13:01 BP 146/79 H 08/15/24 13:01 Pulse Ox 98 08/15/24 13:01 Oxygen Delivery Method Room Air 08/15/24 13:01 BMI result Body Mass Index 28.7 Tobacco/Smoking Status: Tobacco use Status Tobacco use date assessed 07/18/24 08/15/24 13:03 Patient Tobacco Use Status Never used Tobacco 08/15/24 13:03 PHQ-9: PHQ-9 Score PHQ-9: Total score 0 08/15/24 13:03 Thrive Assessment: Date of Thrive Assessment Date Thrive assessed 07/18/24 08/15/24 13:03 Coding Level of Care Code Est Pt Level 4 (80329) Complex EM visit Add On G2211 Diagnoses Hypertension I10 Hyperlipidemia E78.5 Assessment & Plan Assessment & Plan (1) Hypertension: Code(s): I10 - Essential (primary) hypertension Category: Medical Plan: HCTZ added to the regimen. Counselling on the importance of diet and exercise (2) Hyperlipidemia: Code(s): E78.5 - Hyperlipidemia, unspecified Category: Medical Plan: Patient declines statins. Will repeat bw in three months. Plan History of Present Illness - The patient is a 59-year-old male presenting with Essential Hypertension and Gastroesophageal Reflux Disease. - Essential Hypertension: Previously on lisinopril 10 mg, observed reduced home blood pressure readings with some concern over the new wrist measurement device's accuracy. Initiated treatment adjustments were discussed, alongside future incorporation of hydrochlorothiazide. Concerns about hypotensive symptoms and adjustments in therapy were addressed. - Gastroesophageal Reflux Disease: Initial issues of gastric discomfort led to the recommendation of pantoprazole, which he later discontinued due to discomfort. Modified dietary habits are observed to manage symptoms while he plans to attempt pantoprazole therapy once more. Symptoms after consuming dietary items like hummus were noted. Social History - Exercises regularly, engaging in elliptical, weight training, and walking activities. - Has adjusted his nutritional intake, reducing egg consumption in a bid to lower cholesterol. - Household setup includes a blood pressure monitoring system, recently updated to a cuff monitor for accuracy. Review of Systems - Gastrointestinal: Reports gastric discomfort after consuming certain foods; associated with reflux symptoms. - Cardiovascular: Denies current symptoms of hypotension, but concerned about low readings on a wrist monitor. Physical Exam General: Cooperative and healthy appearing Nutritional Appearance: Well nourished Orientation/consciousness: Patient oriented x3 Limitations: No limitations Head: Normal to inspection General: Appearance normal, both eyes and all related structures Neck: Normal visual inspection Chest: Normal palpation of entire chest wall Respiratory: N ormal respiratory effort Neurology: Patient oriented x3, no pain reported Results Plan 1. Essential Hypertension - Begin hydrochlorothiazide while continuing lisinopril; monitor blood pressure at home. - Plan medication combination if both treatments are well tolerated at the next office visit. - Ensure patient uses a reliable cuff monitor for accurate blood pressure tracking. 2. Gastroesophageal Reflux Disease - Retry pantoprazole as a treatment option. - Maintain dietary adjustments to manage symptoms. 3. Hyperlipidemia - Monitor lipid levels in three months, ensuring fasting status before testing. - Continue dietary measures until lipid reevaluation and consider pharmacotherapy based on results. Discussion Notes During the consultation, we discussed the patient's current treatment for hypertension, ongoing issues with gastroesophageal reflux, and adjustments in diet to manage hyperlipidemia. The patient was informed about the two-step approach to his essential hypertension treatment, introducing hydrochlorothiazide in addition to lisinopril and the plan to potentially combine therapies into one medication in the future. We reviewed the importance of using a reliable cuff monitor for accurate home blood pressure readings. Regarding gastroesophageal reflux, the patient was advised to give pantoprazole another trial and continue with dietary changes that had already improved symptoms. I provided information on the beneficial adjustments in diet to manage hyperlipidemia, with plans for reevaluation of lipid levels in three months. All instructions were explained with emphasis on follow-up adherence and lifestyle modifications, ensuring the patient understood his treatment regimen and the goals of each intervention. Patient Instructions - Take your blood pressure medication as directed - lisinopril in combination with hydrochlorothiazide. - Use a reliable blood pressure cuff to check your readings at home. Keep a log to discuss during your next visit. - Retry pantoprazole for your reflux as we discussed, and note any changes in symptoms. - Continue with the dietary changes, reducing intake of eggs, and monitor how foods like hummus impact your reflux. - Plan for a fasting blood test for cholesterol in three months. - Schedule your next office visit after six months to review your treatment plan and discuss potential combination medications. Orders: Orders Lipid Panel 11/04/24 E78.5 - Hyperlipidemia, unspecified, I10 - Essential (primary) hypertension Medications: New hydrochlorothiazide 25 mg PO DAILY 90 tabs 1RF
== END 2024-08-15 13:22 | disposition home or self-care (01) ==
LOC: HO.HMCSH 13:00
PROVIDERS: PCP Internal Medicine; Visit Provider Internal Medicine
DX: I10 Essential (primary) hypertension (principal); E78.5 Hyperlipidemia, unspecified

== ENCOUNTER → 2024-08-15 13:00 | Outpatient (BNVA) | payer OTHER, SELFPAY | PROVIDERS: PCP Internal Medicine; Visit Provider Internal Medicine ==